=== PATIENT | male | born 1935 | race Hispanic/Latino ===

== ENCOUNTER 2024-05-02 12:41 | Emergency (ER) | payer MEDICARE ==
[~2024-05-02] VITALS: Ht 160 cm; Wt 86.0 kg
[~2024-05-02 12:41] MED LIST: ADULT ASPIRIN E81 MG PO; COD LIVER O1 OR; DESONIDE0.05 % PO; FISH OIL1000 MG PO; GABAPENTIN600 MG PO; HYDROCO/APAP1 T10 PO; KEFLEX500 MG PO; LASIX 20 MG20 MG/TAB PO; LEVOTHYROXIN112 MC1 PO; LORTAB 5 OR; LOSARTAN POT50 MG PO; METFORMIN500 MG OR; METFORMIN850 MG PO; MIRTAZAPINE ODT15 MG PO; MIRTAZAPINE7.5 MG PO; NASACORT AQ55 MCG/AC NAS; NEURONTIN600 MG OR; NITROSTAT0.3 MG SL; NOVOLIN 70/30 SC; PREDNISONE20 MG OR; PROSCAR5 MG PO; PYRIDIUM200 MG PO; SIMVASTATIN10 MG PO; SYNTHROID125 MCG OR; VITAMIN D3400 UNI2 PO
[2024-05-02 13:47] VITALS: BP 128/73
[2024-05-02 14:00] VITALS: BP 125/71
[2024-05-02 14:15] VITALS: BP 131/71
[2024-05-02 14:30] VITALS: BP 123/72
[2024-05-02] MEDS ORDERED: CELEBREX100 M1 PO (14:43)
[2024-05-02 14:45] VITALS: BP 123/72
[2024-05-02 14:48] VITALS: BP 123/72
== END 2024-05-02 14:52 | disposition home or self-care (01) ==
LOC: ED 12:41
DX: M19.041 Primary osteoarthritis, right hand (principal); E11.9 Type 2 diabetes mellitus without complications; I10 Essential (primary) hypertension; Z79.84 Long term (current) use of oral hypoglycemic drugs